=== PATIENT | female | born 1965 ===

== ENCOUNTER 2017-11-07 14:19 | Inpatient (IN) | payer OTHER ==
[2017-11-07 14:38] VITALS: BMI 25.8
[2017-11-07] MEDS ORDERED: Iodixanol 320 MG/ML 100 ML BOTTLE IV ONE (14:52)
[2017-11-07 14:59] LABS: BASO % 0.4 % (0.0-2.0); EOS # 0.1 K/uL (0.0-0.7); EOS % 0.8 % (0.0-4.0); LYMPH # 3.1 K/uL (1.0-4.3); LYMPH % 37.5 % (20.0-40.0); MEAN CELL VOLUME 104.5 fL (81.0-99.0); MEAN CORPUSCULAR HGB CONC 35.4 g/dL (33.0-37.0); MEAN PLATELET VOLUME 7.1 fL (7.2-11.7); MONO # 0.4 K/uL (0.0-0.8); MONO % 4.6 % (0.0-10.0); NEUT # 4.7 K/uL (1.8-7.0); NEUT % 56.7 % (50.0-75.0); NRBC % 0.1 % (0.0-2.0); RBC 3.51 Mil/uL (3.80-5.20); RED CELL DISTRIBUTION WIDTH 13.7 % (11.5-14.5); WHITE BLOOD COUNT 8.3 K/uL (4.8-10.8)
--- NOTE | 2017-11-07 15:02 | CT ---
Date of service: 11/07/2017 PROCEDURE: CT HEAD WITHOUT CONTRAST. HISTORY: Code Stroke COMPARISON: No prior study available for comparison TECHNIQUE: Axial computed tomography images were obtained through the head/brain without intravenous contrast. Radiation dose: Total exam DLP = 969.41 mGy-cm. This CT exam was performed using one or more of the following dose reduction techniques: Automated exposure control, adjustment of the mA and/or kV according to patient size, and/or use of iterative reconstruction technique. . FINDINGS: HEMORRHAGE: No acute parenchymal, subarachnoid or extra-axial hemorrhage. BRAIN: Chronic right posterior frontal lobe infarct seen extending from the level of the lateral ventricles superiorly of to the vertex. Suspect minimal chronic periventricular white matter ischemic changes. Note the possibility of a tiny hyperacute infarct cannot be excluded on this study. Clinical correlation recommended. No obvious parenchymal nor extra-axial mass or collection seen on this noncontrast study. There is mild generalized volume loss, not withstanding sulcal enlargement overlying the aforementioned chronic infarct. VENTRICLES: No obstructive hydrocephalus however there is slight ex vacuo dilatation of the right lateral ventricle particularly the midbody region due to the aforementioned chronic infarct. CALVARIUM: There are no acute calvarial fractures. PARANASAL SINUSES: Unremarkable as visualized. No significant inflammatory changes. MASTOID AIR CELLS: Unremarkable as visualized. No inflammatory changes. OTHER FINDINGS: None. IMPRESSION: No acute intracranial hemorrhage. Chronic right posterior frontal lobe infarct (distal branches of the right middle cerebral artery) with associated overlying sulcal enlargement and ex vacuo dilatation of the right lateral ventricle as described. Findings discussed with Dr. Castro at approximately 2:55 p.m. with written down and read back verification.
[2017-11-07] MEDS ORDERED: levETIRAcetam 1,000 MG in Dextrose 5% In Water 200 ML IVPB STA (15:03)
[2017-11-07 15:07] LABS: INR 1.1; PROTHROMBIN TIME 11.9 SECONDS (9.7-12.2)
[2017-11-07 15:11] LABS: ALB/GLOB RATIO 1.2 (1.0-2.1); ALBUMIN 4.2 g/dL (3.5-5.0); ALT/SGPT 30 U/L (9-52); AST/SGOT 26 U/L (14-36); BLOOD UREA NITROGEN 17 mg/dL (7-17); CALCIUM 9.8 mg/dl (8.6-10.4); GFR AFRICAN-AMERICAN > 60; GFR NON-AFRICAN AMERICAN 58; HDL CHOLESTEROL 41 mg/dL (30-70)
[2017-11-07] MEDS ORDERED: Sodium Chloride 0.9% 1,000 ML ONE (15:19)
[2017-11-07] MEDS: Sodium Chloride 0.9% 1,000 ML IV SCH (15:21)
[2017-11-07 15:26] LABS: LDL CHOLESTEROL 143 mg/dL (0-129)
--- NOTE | 2017-11-07 15:28 | CT ---
Date of service: 11/07/2017. PROCEDURE: CT Angiography of the neck and brain with contrast. HISTORY: Left-sided facial droop. COMPARISON: Correlation made with concurrent CT scan brain. TECHNIQUE: Contiguous axial images of the neck were obtained from the level of the skull-base to the superior mediastinum in the arteriographic phase of enhancement. Coronal and sagittal reformats or also generated. IV contrast dose: Radiation Dose - DLP: 559.29 mGy-cm This CT exam was performed using one or more of the following dose reduction techniques: Automated exposure control, adjustment of the mA and/or kV according to patient size, and/or use of iterative reconstruction technique. FINDINGS: The aortic arch widely patent with no significant atherosclerotic plaque. The origins of the great vessels are also widely patent. The common carotid arteries, carotid bifurcations and internal carotid artery is widely patent with no evidence of occlusion or significant stenosis. No evidence of significant soft or calcified atherosclerotic plaque. The distal internal carotid arteries including the petrous cavernous and supraclinoid segments are also patent. Some minor asymmetry of the cavernous segments right-sided which is slightly smaller in caliber than the left side which is nonspecific. There also partially calcified atherosclerotic plaque seen along the distal cavernous/supraclinoid segment junction of. The visualized major branches of the [place] are patent. There is slight asymmetry of the distal branches of the middle cerebral arteries right-side of which exhibit a slight paucity compared to the left side consistent with a chronic infarct involving distal branches of the right middle cerebral artery. . Distal branches of the anterior cerebral arteries are symmetric The vertebral arteries are patent throughout. Some minimal asymmetry of the distal vertebral arteries left-sided which is slightly larger in caliber/more dominant than the right side. Basilar artery patent. There is a origin of the right posterior cerebral artery. Distal branches of the posterior cerebral arteries are also symmetric. No evidence of large aneurysm nor vascular malformation OTHER FINDINGS: Note made of an elliptical shaped approximately 2.6 x 1.7 cm low-attenuation nodule left lobe thyroid gland extending medially into the isthmus. Followup thyroid ultrasound recommended IMPRESSION: Mild calcified atherosclerotic plaque seen right distal cavernous/supraclinoid segment junction There is a very slight paucity of distal branches right MCA corresponding to a chronic infarct involving distal branches of the right MCA territory. There is a elliptical shaped approximately 2.6 x 1.7 cm low-attenuation nodule left lobe thyroid gland extending medially into the isthmus. Followup thyroid ultrasound recommended
--- NOTE | 2017-11-07 15:36 | C.PDOC ---
History Of Present Illness 52yo female, history of HIV, hypertension, and while at her ID doctor today for a routine visit, patient was noted to have a sudden left facial droop with mild slurred speech while talking. The episode lasted a minute and patient reported to be awake and alert with no loss of consciousness. Per report from office the symptoms resolved while the patient was in the office. Patient states at time of symptoms she felt weakness in her left hand but was able to move her hand and denies any flaccid paralysis. She states she has been getting these episodes around once per month for "years". She reports a remote history of prior CVA and on arrival, she denies any medical complaints. Patient denies any headache, chest pain, shortness of breath or palpitations. Time Seen by Provider: 11/07/17 14:41 Chief Complaint (Nursing): Weakness/Neurological Deficit History Per: Patient History/Exam Limitations: no limitations Current Symptoms Are (Timing): Gone Past Medical History Reviewed: Historical Data, Nursing Documentation, Vital Signs Vital Signs: Last Vital Signs Temp 98 F 11/07/17 16:07 Pulse 76 11/07/17 16:07 Resp 19 11/07/17 16:07 BP 126/70 11/07/17 16:07 Pulse Ox 99 11/07/17 16:22 - Medical History PMH: HIV, HTN, TIA Surgical History: No Surg Hx Family History: States: Unknown Family Hx - Social History Hx Alcohol Use: No Hx Substance Use: No - Immunization History Hx Tetanus Toxoid Vaccination: Yes Hx Influenza Vaccination: Yes Hx Pneumococcal Vaccination: Yes Review Of Systems Constitutional: Negative for: Fever, Chills Eyes: Negative for: Vision Change Cardiovascular: Negative for: Chest Pain, Palpitations Respiratory: Negative for: Shortness of Breath Gastrointestinal: Negative for: Nausea, Vomiting Neurological: Positive for: Weakness (left upper extremity), Other (left facial droop; mild slurred speech). Negative for: Seizures, Altered Mental Status, Headache Physical Exam - Physical Exam Appears: Non-toxic, No Acute Distress Skin: Normal Color Head: Atraumatic, Normacephalic Eye(s): bilateral: Normal Inspection, PERRL, EOMI Neck: Normal ROM, Supple Chest: Symmetrical Cardiovascular: Rhythm Regular Respiratory: Normal Breath Sounds Gastrointestinal/Abdominal: Normal Exam, Soft, No Tenderness Back: Normal Inspection, No Vertebral Tenderness, No Paraspinal Tenderness Extremity: Normal ROM (FROM x all extremities), No Deformity, No Swelling, Other (sensations intact) Neurological/Psych: Oriented x3, Normal Speech, Normal Cognition, Normal Motor, Normal Sensation, Other (mild left facial droop, no paralysis; mild subtly slurred speech, no aphasia) Gait: Steady ED Course And Treatment - Laboratory Results Result Diagrams: 11/07/17 14:50 11/07/17 14:50 Lab Interpretation: No Acute Changes ECG: Interpreted By Me O2 Sat by Pulse Oximetry: 99 (RA) Pulse Ox Interpretation: Normal - Radiology CXR: Viewed By Me, Read By Radiologist CXR Interpretation: Yes: No Acute Disease - CT Scan/US CT Head w/o contrast Other Rad Studies (CT/US): Radiology Report Reviewed CT/US Interpretation: FINDINGS: HEMORRHAGE: No acute parenchymal, subarachnoid or extra-axial hemorrhage. BRAIN: Chronic right posterior frontal lobe infarct seen extending from the level of the lateral ventricles superiorly of to the vertex. Suspect minimal chronic periventricular white matter ischemic changes. Note the possibility of a tiny hyperacute infarct cannot be excluded on this study. Clinical correlation recommended. No obvious parenchymal nor extra-axial mass or collection seen on this noncontrast study. There is mild generalized volume loss, not withstanding sulcal enlargement overlying the aforementioned chronic infarct. VENTRICLES: No obstructive hydrocephalus however there is slight ex vacuo dilatation of the right lateral ventricle particularly the midbody region due to the aforementioned chronic infarct. CALVARIUM: There are no acute calvarial fractures. PARANASAL SINUSES: Unremarkable as visualized. No significant inflammatory changes. MASTOID AIR CELLS: Unremarkable as visualized. No inflammatory changes. OTHER FINDINGS: None. IMPRESSION: No acute intracranial hemorrhage. Chronic right posterior frontal lobe infarct (distal branches of the right middle cerebral artery) with associated overlying sulcal enlargement and ex vacuo dilatation of the right lateral ventricle as described. CTA Head/Neck Other Rad Studies (CT/US): Radiology Report Reviewed CT/US Interpretation: FINDINGS: The aortic arch widely patent with no significant atherosclerotic plaque. The origins of the great vessels are also widely patent. The common carotid arteries, carotid bifurcations and internal carotid artery is widely patent with no evidence of occlusion or significant stenosis. No evidence of significant soft or calcified atherosclerotic plaque. The distal internal carotid arteries including the petrous cavernous and supraclinoid segments are also patent. Some minor asymmetry of the cavernous segments right-sided which is slightly smaller in caliber than the left side which is nonspecific. There also partially calcified atherosclerotic plaque seen along the distal cavernous/supraclinoid segment junction of. The visualized major branches of the [place] are patent. There is slight asymmetry of the distal branches of the middle cerebral arteries right-side of which exhibit a slight paucity compared to the left side consistent with a chronic infarct involving distal branches of the right middle cerebral artery. . Distal branches of the anterior cerebral arteries are symmetric. The vertebral arteries are patent throughout. Some minimal asymmetry of the distal vertebral arteries left-sided which is slightly larger in caliber/more dominant than the right side. Basilar artery patent. There is a origin of the right posterior cerebral artery. Distal branches of the posterior cerebral arteries are also symmetric. No evidence of large aneurysm nor vascular malformation. OTHER FINDINGS: Note made of an elliptical shaped approximately 2.6 x 1.7 cm low-attenuation nodule left lobe thyroid gland extending medially into the isthmus. Followup thyroid ultrasound recommended. IMPRESSION: Mild calcified atherosclerotic plaque seen right distal cavernous/supraclinoid segment junction. There is a very slight paucity of distal branches right MCA corresponding to a chronic infarct involving distal branches of the right MCA territory. There is a elliptical shaped approximately 2.6 x 1.7 cm low- attenuation nodule left lobe thyroid gland extending medially into the isthmus. Followup thyroid ultrasound recommended Medical Decision Making Medical Decision Making: Plan: * Labs * CT Head /o contrast * CTA Head and Neck * CXR * EKG * IV Fluids [address] Cristobal, neurologist [facility] saw[facility] who feels that patients symptoms may be consistent with seizure activity and recommends Keppra 1000mg IVPB bolus. 1455 CT Head report reviewed: IMPRESSION: No acute intracranial hemorrhage. Chronic right posterior frontal lobe infarct (distal branches of the right middle cerebral artery) with associated overlying sulcal enlargement and ex vacuo dilatation of the right lateral ventricle as described. 1459 CTA Head and Neck report reviewed: IMPRESSION: Mild calcified atherosclerotic plaque seen right distal cavernous/supraclinoid segment junction There is a very slight paucity of distal branches right MCA corresponding to a chronic infarct involving distal branches of the right MCA territory. There is a elliptical shaped approximately 2.6 x 1.7 cm low-attenuation nodule left lobe thyroid gland extending medially into the isthmus. Followup thyroid ultrasound recommended [address] Lincoln, patient to be admitted under his service. Disposition - Disposition Disposition: HOSPITALIZED Disposition Time: 16:29 Condition: STABLE - POA Present On Arrival: None - Clinical Impression Clinical Impression: Facial droop, History of HIV infection, History of CVA (cerebrovascular accident) - Scribe Statement The provider has reviewed the documentation as recorded by the Tobyibrogers Hernandez Provider Attestation: All medical record entries made by the Tobyibrogers were at my direction and personally dictated by me. I have reviewed the chart and agree that the record accurately reflects my personal performance of the history, physical exam, medical decision making, and the department course for this patient. I have also personally directed, reviewed, and agree with the discharge instructions and disposition. NIHSS Stroke Scale - Date/Time Evaluation Performed Date Performed: 11/07/17 Time Performed: 14:45 When Was NIHSS Performed: Baseline - How Severe is the Stoke Level of Consciousness: 0=Alert LOC to Questions: 0=Both comments correct LOC to commands: 0=Obeys both correctly Best Gaze: 0=Normal Visual: 0=No visual loss Facial: 1=Minor asymmetry Motor Arm - Left: 0=No drift Motor Arm - Right: 0=No drift Motor Leg - Left: 0=No drift Motor Leg - Right: 0=No drift Limb Ataxia: 0=Absent Sensory: 0=Normal Best Language: 0=No aphasia Dysarthia: 0=Normal articulation Extinction & Inattention (Neglect): 0=Normal, no object Score: 1 Severity Of Stroke: 1-4= Minor Stroke
--- NOTE | 2017-11-07 15:40 | RAD ---
Date of service: 11/07/2017 HISTORY: Code Stroke COMPARISON: No prior. FINDINGS: LUNGS: The lungs are well inflated and clear. PLEURA: No significant pleural effusion identified, no pneumothorax apparent. CARDIOVASCULAR: Normal. OSSEOUS STRUCTURES: No significant abnormalities. VISUALIZED UPPER ABDOMEN: Normal. OTHER FINDINGS: None. IMPRESSION: No active pulmonary disease.
--- NOTE | 2017-11-07 16:39 | CP.PCM.CON ---
History of Present Illness - History of Present Illness History of Present Illness: PGY 1 Resident Consult Note for Dr. Cristobal. 52 year female w/ PMHx of stroke w/ no residual weakness, HTN, HIV positive ( undetectable viral load) presents to following referral from PMD for eye twitching. Patient states she was unaware of the twitching and was informed of it by her PMD on visit. Patient denies N/V, headaches, F/C, chest pain, shortness of breath, weakness of extremities. Patient has no complaints and states she feels normal. PMD: Dr. Lincoln PMHx: HIV, Stroke, HTN PSHx: Denies Allergies: Sulfamethoxazole, trimethoprim Meds: Combivir Social: Smoker (5-6 cigarettes/ day for past 5-6 years, previously pack a day), Drinks socially, Denies drug use, works as a [employer] Family Hx: History of cardiac disease in siblings & father Review of Systems - Constitutional Constitutional: absent: Chills, Headache - EENT Eyes: absent: Blurred Vision - Cardiovascular Cardiovascular: absent: Chest Pain, Dyspnea - Respiratory Respiratory: absent: Dyspnea on Exertion, Wheezing - Gastrointestinal Gastrointestinal: absent: Abdominal Pain, Diarrhea - Musculoskeletal Musculoskeletal: absent: Abnormal Gait, Myalgias, Numbness - Psychiatric Psychiatric: absent: Depression Past Patient History - Past Social History Smoking Status: Never Smoked - CARDIAC Hx Hypertension: Yes - NEUROLOGICAL Hx Transient Ischemic Attacks (TIA): Yes - HEMATOLOGICAL/ONCOLOGICAL Hx Human Immunodeficiency Virus (HIV): Yes - PSYCHIATRIC Hx Substance Use: No - SURGICAL HISTORY Hx Surgeries: No Meds Allergies/Adverse Reactions: Allergies Allergy/AdvReac Type Severity Reaction Status Date / Time sulfamethoxazole Allergy Verified 05/03/16 10:02 [From Bactrim] trimethoprim [From Bactrim] Allergy Verified 05/03/16 10:02 - Medications Medications: Current Medications Sodium Chloride (Sodium Chloride 0.9%) 1,000 mls @ 100 mls/hr IV .Q10H CRUZ Last Admin: 11/07/17 15:21 Dose: 100 mls/hr Physical Exam - Constitutional Appears: Well, Non-toxic, No Acute Distress - Head Exam Head Exam: NORMAL INSPECTION - Eye Exam Eye Exam: EOMI, Normal appearance, PERRL. absent: Nystagmus, Periorbital swelling Pupil Exam: NORMAL ACCOMODATION - ENT Exam ENT Exam: Mucous Membranes Moist - Neurological Exam Neurological exam: Alert, CN II-XII Intact, Oriented x3, Reflexes Normal - Expanded Neurological Exam Expanded Cranial nerves: EOM's Intact: Normal Cerebellar Function: Finger to Nose: Normal Neuro motor strength exam: Left Upper Extremity: 5, Right Upper Extremity: 5, Left Lower Extremity: 5, Right Lower Extremity: 5 DTR: Achilles Tendon Left: 2+, Achilles Tendon Right: 2+, Bicep Left: 2+, Bicep Right: 2+, Brachioradialis Left: 2+, Brachioradialis Right: 2+, Patellar Left: 2 +, Patellar Right: 2+, Tricep Left: 2+, Tricep Right: 2+ Coma Scale Eye Opening: SPONTANEOUS Coma Scale Motor Response: OBEYS COMMANDS Coma Scale Verbal: Oriented Coma Scale Total: 15 Results - Vital Signs Recent Vital Signs: Last Vital Signs Temp 98 F 11/07/17 16:07 Pulse 76 11/07/17 16:07 Resp 19 11/07/17 16:07 BP 126/70 11/07/17 16:07 Pulse Ox 99 11/07/17 16:31 - Labs Result Diagrams: 11/07/17 14:50 11/07/17 14:50 Labs: Laboratory Results - last 24 hr 11/07/17 11/07/17 11/07/17 14:29 14:50 14:50 WBC 8.3 RBC 3.51 L Hgb 13.0 Hct 36.7 MCV 104.5 H MCH 37.0 H MCHC 35.4 RDW 13.7 Plt Count 283 MPV 7.1 L Neut % (Auto) 56.7 Lymph % (Auto) 37.5 [place] % (Auto) 4.6 Eos % (Auto) 0.8 Baso % (Auto) 0.4 Neut # (Auto) 4.7 Lymph # (Auto) 3.1 [place] # (Auto) 0.4 Eos # (Auto) 0.1 Baso # (Auto) 0.0 PT 11.9 INR 1.1 APTT 28 Sodium Potassium Chloride Carbon Dioxide Anion Gap BUN Creatinine Est GFR ( Amer) Est GFR (Non-Af Amer) POC Glucose (mg/dL) 110 Random Glucose Hemoglobin A1c Calcium Total Bilirubin AST ALT Alkaline Phosphatase Troponin I Total Protein Albumin Globulin Albumin/Globulin Ratio Triglycerides Cholesterol LDL Cholesterol Direct HDL Cholesterol Blood Type Antibody Screen 11/07/17 11/07/17 11/07/17 14:50 14:50 15:20 WBC RBC Hgb Hct MCV MCH MCHC RDW Plt Count MPV Neut % (Auto) Lymph % (Auto) [place] % (Auto) Eos % (Auto) Baso % (Auto) Neut # (Auto) Lymph # (Auto) [place] # (Auto) Eos # (Auto) Baso # (Auto) PT INR APTT Sodium 146 Potassium 3.8 Chloride 111 H Carbon Dioxide 24 Anion Gap 15 BUN 17 Creatinine 1.0 Est GFR ( Amer) > 60 Est GFR (Non-Af Amer) 58 POC Glucose (mg/dL) Random Glucose 109 H Hemoglobin A1c 5.5 Calcium 9.8 Total Bilirubin 0.4 AST 26 ALT 30 Alkaline Phosphatase 85 Troponin I < 0.0120 Total Protein 7.7 Albumin 4.2 Globulin 3.5 Albumin/Globulin Ratio 1.2 Triglycerides 188 H Cholesterol 244 H LDL Cholesterol Direct 143 H HDL Cholesterol 41 Blood Type A POSITIVE Antibody Screen Negative Assessment & Plan (1) History of CVA (cerebrovascular accident) Assessment and Plan: 52 yr Female w/ PMHx of HIV, stroke, HTN presents to ED w/ eye twitching Status: Acute Comment: Case discused with Dr. Cristobal. Recommend MRI w/ contrast to r/o possible lession 2/2 of HIV status. Recommend ID workup. NIHSS 0, less likely stroke. Will continue to follow while inpatient.
--- NOTE | 2017-11-07 18:07 | MRI ---
Date of service: 11/07/2017 PROCEDURE: MRI BRAIN WITHOUT CONTRAST HISTORY: HIV , Hx stroke, r/o lesion COMPARISON: Noncontrast head CT performed earlier the same day. TECHNIQUE: Multiplanar, multisequence MR images of the brain were obtained without intravenous contrast enhancement. FINDINGS: HEMORRHAGE: None DWI: No evidence of an acute or early subacute infarction. BRAIN PARENCHYMA: There is cystic encephalomalacia and gliosis in the right posterior frontal and anterior parietal lobes with volume loss and ex vacuo dilatation of the atrium of the right lateral ventricle. There is also an old infarction in the right splenium of corpus callosum. There are mild chronic microangiopathic changes. There is no mass, mass effect or abnormal extra-axial fluid collection. The midline sagittal structures are normal. VENTRICLES: The ventricles are normal in size, shape and configuration. CRANIUM: There is normal bone marrow signal pattern. ORBITS: Grossly unremarkable. PARANASAL SINUSES/MASTOIDS: Predominantly clear. VASCULAR SYSTEM: There are normal signal voids in the larger intracranial arteries. OTHER FINDINGS: None. IMPRESSION: No acute intracranial abnormality. Right posterior frontal and anterior parietal lobe cystic encephalomalacia and gliosis, sequela of remote MCA territory infarction. 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 Mild chronic microangiopathic changes.
--- NOTE | 2017-11-07 18:43 | CP.PCM.HP ---
History of Present Illness - History of Present Illness History of Present Illness: Resident History & Physical for Dr. Lincoln Patient is a 52 year old female with apst medical history of HIV, HTN, hypercholesterolemia presenting with chief complaint of an episode of facial droop associated with a twitch on the left side of her face and aphasia. Patient states that this occurred when she was at clinic, and she was then sent by her PMD to the ED. She states that the episode lasted one minute, and that this has happened to her multiple times before. She states that these episodes occur approximately once a month. She admits to a history of prior CVA approximately 15 years ago. She is currently asymptomatic. Denies fever, chills , headache, dizziness, nausea, vomiting, loss of consciousness, seizures, loss of bowel or bladder incontinence, chest pain, shortness of breath, abdominal pain, diarrhea, constipation, dysuria. Past medical history: HIV, HTN, hypercholesterolemia Past surgical history: None Social history: Social alcohol use. Smokes 5 cigarettes a day for the past 20 years. Denies recreational drug use. Family history: Mother (HTN, diverticulosis), Father (Alzheimer's dementia) Allergies: sulfamethoxazole, trimethoprim PMD: Dr. Carlos Ko Pharmacy: [facility] ([address] [place] [address]) Present on Admission - Present on Admission Any Indicators Present on Admission: No Review of Systems - Constitutional Constitutional: absent: Chills, Fever, Headache - EENT Eyes: absent: Change in Vision Ears: absent: Abnormal Hearing - Cardiovascular Cardiovascular: absent: Chest Pain, Dyspnea - Respiratory Respiratory: absent: Cough, Dyspnea - Gastrointestinal Gastrointestinal: absent: Abdominal Pain, Change in Bowel Habits - Genitourinary Genitourinary: absent: Dysuria - Musculoskeletal Musculoskeletal: absent: Abnormal Gait - Integumentary Integumentary: absent: Rash - Neurological Neurological: Abnormal Speech, Focal Weakness. absent: Abnormal Hearing, Abnormal Movements, Frequent Falls, Headaches, Loss of Vision, Memory Loss, Syncope, Tremor Past Patient History - Past Social History Smoking Status: Never Smoked - CARDIAC Hx Hypertension: Yes - NEUROLOGICAL Hx Transient Ischemic Attacks (TIA): Yes - HEMATOLOGICAL/ONCOLOGICAL Hx Human Immunodeficiency Virus (HIV): Yes - PSYCHIATRIC Hx Substance Use: No - SURGICAL HISTORY Hx Surgeries: No Meds Allergies/Adverse Reactions: Allergies Allergy/AdvReac Type Severity Reaction Status Date / Time sulfamethoxazole Allergy Verified 05/03/16 10:02 [From Bactrim] trimethoprim [From Bactrim] Allergy Verified 05/03/16 10:02 Physical Exam - Constitutional Appears: Non-toxic, No Acute Distress - Head Exam Head Exam: ATRAUMATIC, NORMOCEPHALIC - Eye Exam Eye Exam: EOMI, Normal appearance, PERRL - ENT Exam ENT Exam: Mucous Membranes Moist, Normal Exam - Neck Exam Neck exam: Positive for: Full Rom, Normal Inspection. Negative for: Tenderness - Respiratory Exam Respiratory Exam: Clear to Auscultation Bilateral, NORMAL BREATHING PATTERN. absent: Respiratory Distress - Cardiovascular Exam Cardiovascular Exam: REGULAR RHYTHM, +S1, +S2. absent: Systolic Murmur - GI/Abdominal Exam GI & Abdominal Exam: Normal Bowel Sounds, Soft. absent: Rebound, Tenderness - Back Exam Back exam: NORMAL INSPECTION - Neurological Exam Neurological exam: Alert, CN II-XII Intact - Expanded Neurological Exam Expanded Speech: Fluid Speech Cranial nerves: EOM's Intact: Normal, Facial Palsey w/Forehead Movement: Normal , Facial Palsey w/o Forehead Movement: Normal, Facial Sensation: Normal Cerebellar Function: Finger to Nose: Normal, Heel to Burks: Normal, Romberg: Normal Upper motor neuron: Babinski Sign: Normal, Pronator Drift: Normal Sensory exam: Lower Extremity Light Touch: Normal, Upper Extremity Light Touch: Normal Neuro motor strength exam: Left Upper Extremity: 5, Right Upper Extremity: 5, Left Lower Extremity: 5, Right Lower Extremity: 5 DTR: Achilles Tendon Left: 2+, Achilles Tendon Right: 2+, Bicep Left: 2+, Bicep Right: 2+, Brachioradialis Left: 2+, Brachioradialis Right: 2+, Patellar Left: 2 +, Patellar Right: 2+ Coma Scale Eye Opening: SPONTANEOUS Coma Scale Motor Response: OBEYS COMMANDS Coma Scale Verbal: Oriented Coma Scale Total: 15 - Psychiatric Exam Psychiatric exam: Normal Affect, Normal Mood - Skin Skin Exam: Dry, Intact, Normal Color Results - Vital Signs Recent Vital Signs: Last Vital Signs Temp 98 F 11/07/17 16:07 Pulse 76 11/07/17 16:07 Resp 19 11/07/17 16:07 BP 126/70 11/07/17 16:07 Pulse Ox 99 11/07/17 16:31 - Labs Result Diagrams: 11/07/17 14:50 11/07/17 14:50 Labs: Laboratory Results - last 24 hr 11/07/17 11/07/17 11/07/17 14:29 14:50 14:50 WBC 8.3 RBC 3.51 L Hgb 13.0 Hct 36.7 MCV 104.5 H MCH 37.0 H MCHC 35.4 RDW 13.7 Plt Count 283 MPV 7.1 L Neut % (Auto) 56.7 Lymph % (Auto) 37.5 [place] % (Auto) 4.6 Eos % (Auto) 0.8 Baso % (Auto) 0.4 Neut # (Auto) 4.7 Lymph # (Auto) 3.1 [place] # (Auto) 0.4 Eos # (Auto) 0.1 Baso # (Auto) 0.0 PT 11.9 INR 1.1 APTT 28 Sodium Potassium Chloride Carbon Dioxide Anion Gap BUN Creatinine Est GFR ( Amer) Est GFR (Non-Af Amer) POC Glucose (mg/dL) 110 Random Glucose Hemoglobin A1c Calcium Total Bilirubin AST ALT Alkaline Phosphatase Troponin I Total Protein Albumin Globulin Albumin/Globulin Ratio Triglycerides Cholesterol LDL Cholesterol Direct HDL Cholesterol Blood Type Antibody Screen 11/07/17 11/07/17 11/07/17 14:50 14:50 15:20 WBC RBC Hgb Hct MCV MCH MCHC RDW Plt Count MPV Neut % (Auto) Lymph % (Auto) [place] % (Auto) Eos % (Auto) Baso % (Auto) Neut # (Auto) Lymph # (Auto) [place] # (Auto) Eos # (Auto) Baso # (Auto) PT INR APTT Sodium 146 Potassium 3.8 Chloride 111 H Carbon Dioxide 24 Anion Gap 15 BUN 17 Creatinine 1.0 Est GFR ( Amer) > 60 Est GFR (Non-Af Amer) 58 POC Glucose (mg/dL) Random Glucose 109 H Hemoglobin A1c 5.5 Calcium 9.8 Total Bilirubin 0.4 AST 26 ALT 30 Alkaline Phosphatase 85 Troponin I < 0.0120 Total Protein 7.7 Albumin 4.2 Globulin 3.5 Albumin/Globulin Ratio 1.2 Triglycerides 188 H Cholesterol 244 H LDL Cholesterol Direct 143 H HDL Cholesterol 41 Blood Type A POSITIVE Antibody Screen Negative Assessment & Plan - Assessment and Plan (Free Text) Plan: Episode of facial numbness with aphasia - Secondary to CVA vs. TIA vs. seizures - Code Stroke called and Keppra 1000 mg IVPB bolus, Aspirin 325 mg given in ED - Head CT shows no acute intracranial hemorrhage. Chronic right posterior frontal lobe infarct (distal branches of the right middle cerebral artery) with associated overlying sulcal enlargement and ex vacuo dilatation of the right lateral ventricle. Please see full report. - Brain MRI shows no acute intracranial abnormality. Right posterior frontal and anterior parietal lobe cystic encephalomalacia gliosis, sequela of remote MCA territory infarction. 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 Mild chronic microangiopathic changes. Please see full report. - Head and Neck CTA shows mild calcified atherosclerotic plaque seen right distal cavernous/supraclinoid segment junction. Slight paucity of distal branches right MCA corresponding to a chronic infarct. Elliptical shaped nodule left lobe thyroid gland. Please see full report. - NIHSS 0 - Neurology consulted. Appreciate recs. - PT consulted - Followup ECHO HIV - Followup patient meds with pharmacy - Followup HIV viral load - Followup CD4 count Hypertension - Followup patient meds with pharmacy - Monitor vital signs Hypercholesterolemia - Lipid panel shows triglycerides 188, cholesterol 244, LDL cholesterol Direct 143, HDL cholesterol 41 - Heart Healthy Diet Thyroid nodule - Brain MRI shows elliptical shaped nodule left lobe thyroid gland. - Patient states she has had thyroid ultrasounds done outpatient. However, no intervention has been done. - Followup outpatient PPX - SCDs - No GI prophylaxis indicated at this time Martínez Elder PGY-1 - Date & Time Date: 11/07/17 Time: 06:30
[2017-11-08] MEDS: Sodium Chloride 0.9% 1,000 ML IV SCH ×2 (00:45→06:41)
[2017-11-08 06:38] LABS: BASO % 0.5 % (0.0-2.0); EOS # 0.1 K/uL (0.0-0.7); EOS % 1.6 % (0.0-4.0); HEMOGLOBIN 12.2 g/dL (11.0-16.0); LYMPH # 3.1 K/uL (1.0-4.3); LYMPH % 49.8 % (20.0-40.0); MEAN CELL VOLUME 105.4 fL (81.0-99.0); MEAN CORPUSCULAR HEMOGLOBIN 36.4 pg (27.0-31.0); MEAN CORPUSCULAR HGB CONC 34.6 g/dL (33.0-37.0); MEAN PLATELET VOLUME 7.1 fL (7.2-11.7); MONO # 0.4 K/uL (0.0-0.8); MONO % 6.3 % (0.0-10.0); NEUT # 2.6 K/uL (1.8-7.0); NEUT % 41.8 % (50.0-75.0); NRBC % 0.2 % (0.0-2.0); RBC 3.35 Mil/uL (3.80-5.20); WHITE BLOOD COUNT 6.2 K/uL (4.8-10.8)
[2017-11-08 07:32] LABS: ALB/GLOB RATIO 1.2 (1.0-2.1); ALBUMIN 3.4 g/dL (3.5-5.0); ALT/SGPT 30 U/L (9-52); AST/SGOT 20 U/L (14-36); BLOOD UREA NITROGEN 13 mg/dL (7-17); CALCIUM 8.4 mg/dl (8.6-10.4); GFR AFRICAN-AMERICAN > 60; GFR NON-AFRICAN AMERICAN > 60
[2017-11-08 07:53] VITALS: BP 112/84; PULSE 58; RESP 18; TEMP 98.1; O2SAT 100
--- NOTE | 2017-11-08 11:06 | CARD ---
APPROVED REPORT Date of service: 11/07/2017 EKG Measurement Heart [id number] <Conclusion> Normal sinus rhythm Cannot rule out Anterior infarct, age undetermined Abnormal ECG
--- NOTE | 2017-11-08 11:37 | CP.PCM.PN ---
Subjective - Date & Time of Evaluation Date of Evaluation: 11/08/17 Time of Evaluation: 10:50 - Subjective Subjective: PGY 1 Resident Note for Neurologist Dr. Cristobal. Patient seen and examined at bedside. No overnight events. Patient has no current complaints and states she has no current symptoms. Patient denies chest pain, SOB, headaches, N/V, F/C. Objective - Vital Signs/Intake and Output Vital Signs (last 24 hours): Temp Pulse Resp BP Pulse Ox 98.1 F 58 L 18 112/84 100 11/08/17 07:10 11/08/17 07:10 11/08/17 07:10 11/08/17 07:10 11/08/17 07:10 Intake and Output: 11/08/17 11/08/17 06:59 18:59 Intake Total 300 Balance 300 - Medications Medications: Current Medications Sodium Chloride (Sodium Chloride 0.9%) 1,000 mls @ 100 mls/hr IV .Q10H CRUZ Last Admin: 11/08/17 06:41 Dose: 100 mls/hr - Labs Labs: 11/08/17 06:32 11/08/17 06:32 PT 11.9 SECONDS (9.7-12.2) 11/07/17 14:50 INR 1.1 11/07/17 14:50 APTT 28 SECONDS (21-34) 11/07/17 14:50 - Constitutional Appears: Well, Non-toxic, No Acute Distress - Head Exam Head Exam: ATRAUMATIC, NORMAL INSPECTION, NORMOCEPHALIC - Eye Exam Eye Exam: EOMI, Normal appearance Pupil Exam: NORMAL ACCOMODATION - Extremities Exam Extremities Exam: Full ROM, Normal Inspection - Neurological Exam Neurological Exam: Alert, Awake, CN II-XII Intact, Oriented x3 Neuro motor strength exam: Left Upper Extremity: 5, Right Upper Extremity: 5, Left Lower Extremity: 5, Right Lower Extremity: 5 Additional comments: Normal finger nose. - Psychiatric Exam Psychiatric exam: Normal Affect, Normal Mood Assessment and Plan (1) History of CVA (cerebrovascular accident) Assessment & Plan: Case discussed with Dr. Cristobal 52 year female w/ PMHx of stroke w/ no residual weakness, HTN, HIV positive ( undetectable viral load) presents to following referral from PMD for eye twitching: - MRI report: No acute intracranial abnormality. Right posterior frontal and anterior parietal lobe cystic encephalomalacia and gliosis, sequela of remote MCA territory infarction. 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 Mild chronic microangiopathic changes. - Cleared from neurological standpoint, has no acute changes at this time - Recommend f/u w/ Dr. Cristobal outpatient in clinic in 2-3 months - Recommend continued f/u with cardio - Recommend on low dose aspirin daily Status: Chronic
--- NOTE | 2017-11-08 14:28 | CP.PCM.DIS ---
Provider - Provider Date of Admission: 11/07/17 16:22 Attending physician: Marck Lincoln Jr, MD Time Spent in preparation of Discharge (in minutes): 0 Hospital Course - Lab Results Lab Results: Most Recent Lab Values WBC 6.2 K/uL (4.8-10.8) 11/08/17 06:32 RBC 3.35 Mil/uL (3.80-5.20) L 11/08/17 06:32 Hgb 12.2 g/dL (11.0-16.0) 11/08/17 06:32 Hct 35.3 % (34.0-47.0) 11/08/17 06:32 MCV 105.4 fL (81.0-99.0) H 11/08/17 06:32 MCH 36.4 pg (27.0-31.0) H 11/08/17 06:32 MCHC 34.6 g/dL (33.0-37.0) 11/08/17 06:32 RDW 14.0 % (11.5-14.5) 11/08/17 06:32 Plt Count 236 K/uL (130-400) 11/08/17 06:32 MPV 7.1 fL (7.2-11.7) L 11/08/17 06:32 Neut % (Auto) 41.8 % (50.0-75.0) L 11/08/17 06:32 Lymph % (Auto) 49.8 % (20.0-40.0) H 11/08/17 06:32 [place] % (Auto) 6.3 % (0.0-10.0) 11/08/17 06:32 Eos % (Auto) 1.6 % (0.0-4.0) 11/08/17 06:32 Baso % (Auto) 0.5 % (0.0-2.0) 11/08/17 06:32 Neut # (Auto) 2.6 K/uL (1.8-7.0) 11/08/17 06:32 Lymph # (Auto) 3.1 K/uL (1.0-4.3) 11/08/17 06:32 [place] # (Auto) 0.4 K/uL (0.0-0.8) 11/08/17 06:32 Eos # (Auto) 0.1 K/uL (0.0-0.7) 11/08/17 06:32 Baso # (Auto) 0.0 K/uL (0.0-0.2) 11/08/17 06:32 PT 11.9 SECONDS (9.7-12.2) 11/07/17 14:50 INR 1.1 11/07/17 14:50 APTT 28 SECONDS (21-34) 11/07/17 14:50 Sodium 144 mmol/L (132-148) 11/08/17 06:32 Potassium 3.7 mmol/L (3.6-5.2) 11/08/17 06:32 Chloride 115 mmol/L (98-107) H 11/08/17 06:32 Carbon Dioxide 20 mmol/L (22-30) L 11/08/17 06:32 Anion Gap 13 (10-20) 11/08/17 06:32 BUN 13 mg/dL (7-17) 11/08/17 06:32 Creatinine 0.8 mg/dL (0.7-1.2) 11/08/17 06:32 Est GFR ( Amer) > 60 11/08/17 06:32 Est GFR (Non-Af Amer) > 60 11/08/17 06:32 POC Glucose (mg/dL) 98 mg/dL (65-110) 11/07/17 20:41 Random Glucose 93 mg/dL (65-105) 11/08/17 06:32 Hemoglobin A1c 5.5 % (4.2-6.5) 11/07/17 14:50 Calcium 8.4 mg/dl (8.6-10.4) L 11/08/17 06:32 Phosphorus 3.1 mg/dL (2.5-4.5) 11/08/17 06:32 Magnesium 1.8 mg/dL (1.6-2.3) 11/08/17 06:32 Total Bilirubin 0.3 mg/dL (0.2-1.3) 11/08/17 06:32 AST 20 U/L (14-36) 11/08/17 06:32 ALT 30 U/L (9-52) 11/08/17 06:32 Alkaline Phosphatase 71 U/L (38-126) 11/08/17 06:32 Troponin I < 0.0120 ng/mL (0.00-0.120) 11/07/17 14:50 Total Protein 6.3 g/dL (6.3-8.3) 11/08/17 06:32 Albumin 3.4 g/dL (3.5-5.0) L 11/08/17 06:32 Globulin 2.9 gm/dL (2.2-3.9) 11/08/17 06:32 Albumin/Globulin Ratio 1.2 (1.0-2.1) 11/08/17 06:32 Triglycerides 188 mg/dL (0-149) H 11/07/17 14:50 Cholesterol 244 mg/dL (0-199) H 11/07/17 14:50 LDL Cholesterol Direct 143 mg/dL (0-129) H 11/07/17 14:50 HDL Cholesterol 41 mg/dL (30-70) 11/07/17 14:50 Blood Type A POSITIVE 11/07/17 15:20 Antibody Screen Negative 11/07/17 15:20 - Hospital Course Hospital Course: Upon Admission: Patient is a 52 year old female with apst medical history of HIV, HTN, hypercholesterolemia presenting with chief complaint of an episode of facial droop associated with a twitch on the left side of her face and aphasia. Patient states that this occurred when she was at clinic, and she was then sent by her PMD to the ED. She states that the episode lasted one minute, and that this has happened to her multiple times before. She states that these episodes occur approximately once a month. She admits to a history of prior CVA approximately 15 years ago. She is currently asymptomatic. Denies fever, chills , headache, dizziness, nausea, vomiting, loss of consciousness, seizures, loss of bowel or bladder incontinence, chest pain, shortness of breath, abdominal pain, diarrhea, constipation, dysuria. Past medical history: HIV, HTN, hypercholesterolemia Past surgical history: None Social history: Social alcohol use. Smokes 5 cigarettes a day for the past 20 years. Denies recreational drug use. Family history: Mother (HTN, diverticulosis), Father (Alzheimer's dementia) Allergies: sulfamethoxazole, trimethoprim PMD: Dr. Carlos Ko Pharmacy: [facility] ([address] [place] [address]) AMA dicharge: Patient was examined earlier in the morning. During examination, patient stated she wanted to leave at that time for her granddaughter's birthday constitution party. It was explained to her that the attending had to come evaluate her before she could be discharged. During an admission for another patient, patient expressed that she would like to sign out AMA to attend her granddaughter's birthday constitution party. Before I could personally come as I was speaking to a different patient the house doctor came to sign her out. I was unable to perform a physical examination at that time as I was not present. During the morning, I was able to speak with her and she was alert, oriented x3, had no neurological deficits, CT + MRI + CTA of head/neck were all negative for any abnormalities concerning of stroke. In the morning, she stated that she had a stroke prior and was taking Aspirin 81mg daily. No discharge plan had been discussed other than after Dr. Lincoln spoke with her we would have a concise plan of what the next part of her management. However patient left before Dr. Lincoln was able to evaluate her. She was signed out by the house doctor. Discharge Exam - Head Exam Head Exam: ATRAUMATIC, NORMAL INSPECTION, NORMOCEPHALIC - Eye Exam Eye Exam: EOMI, Normal appearance. absent: Nystagmus, Scleral icterus - Respiratory Exam Respiratory Exam: Clear to PA & Lateral, NORMAL BREATHING PATTERN. absent: Rales, Rhonchi, Wheezes, Respiratory Distress - Cardiovascular Exam Cardiovascular Exam: REGULAR RHYTHM, +S1, +S2. absent: Tachycardia - GI/Abdominal Exam GI & Abdominal Exam: Normal Bowel Sounds, Soft. absent: Diminished Bowel Sounds , Distended, Firm, Guarding, Tenderness - Extremities Exam Extremities exam: normal inspection - Back Exam Back exam: NORMAL INSPECTION. absent: CVA tenderness (L), CVA tenderness (R) - Neurological Exam Neurological exam: Alert, Normal Gait, Oriented x3 - Psychiatric Exam Psychiatric exam: Normal Affect, Normal Mood - Skin Skin Exam: Intact, Normal Color Discharge Plan - Follow Up Plan Condition: STABLE Disposition: AGAINST MEDICAL ADVICE Additional Instructions: Patient was examined earlier in the morning. During examination, patient stated she wanted to leave at that time for her granddaughter's birthday constitution party. It was explained to her that the attending had to come evaluate her before she could be discharged. During an admission for another patient, patient expressed that she would like to sign out AMA to attend her granddaughter's birthday constitution party. Before I could personally come as I was speaking to a different patient the house doctor came to sign her out. I was unable to perform a physical examination at that time as I was not present. During the morning, I was able to speak with her and she was alert, oriented x3, had no neurological deficits, CT + MRI + CTA of head/neck were all negative for any abnormalities concerning of stroke. In the morning, she stated that she had a stroke prior and was taking Aspirin 81mg daily.
[2017-11-09 08:43] LABS: % CD4 (T HELPER CELL) 42 Percent (30-61); % CD8 (SUPPRESSOR T CELL) 41 Percent (12-42); ABSOLUTE CD4 CELLS 1403 Cells/mcL (490-1740); ABSOLUTE CD8 CELLS 1371 Cells/mcL (180-1170); ABSOLUTE LYMPHOCYTES 3361 Cells/mcL (850-3900); HELPER/SUPPRESSOR RATIO 1.02 Ratio (0.86-5.00)
== END 2017-11-08 13:20 | disposition left against medical advice (07) | DRG 35 ==
LOC: C.ER 14:19 → C.9E 16:22 → C.6T 17:27
PROVIDERS: ADMIT Internal Medicine; ATTEND Internal Medicine
DX: R29.810 Facial weakness (principal); R47.01 Aphasia; R25.3 Fasciculation; Z21 Asymptomatic human immunodeficiency virus [HIV] infection status; E78.00 Pure hypercholesterolemia, unspecified; F17.210 Nicotine dependence, cigarettes, uncomplicated; I10 Essential (primary) hypertension; Z86.73 Personal history of transient ischemic attack (TIA), and cerebral infarction without residual deficits

== ENCOUNTER 2018-07-13 08:21 | Outpatient (CLI) | payer OTHER | END 2018-07-13 08:22 | disposition home or self-care (01) | LOC: C.MAMMO 08:21 | DX: Z12.39 Encounter for other screening for malignant neoplasm of breast (principal) ==